=== PATIENT | female | born 1950 | race Caucasian/White ===

== ENCOUNTER 2016-11-04 12:19 | Inpatient (IN) | payer OTHER ==
[~2016-11-04] VITALS: Ht 170.2 cm; Wt 65.9 kg
[2016-11-04] MEDS ORDERED: LISINOPRIL2.5 MG (15:35)
[2016-11-04] MEDS ORDERED: LEVOTHYROXIN0.025 M2 PO (15:36)
[2016-11-04] MEDS ORDERED: TOPROL XL25 MG PO (15:37)
[2016-11-04] MEDS ORDERED: SIMVASTATIN5 M2 (15:37)
[2016-11-04 15:51] LABS: BASOPHIL % 0.8 % (0-2); PLATELET COUNT 189 x10^3mcL (130-400); RED CELL DISTRIBUTION WIDTH 13.1 % (11.5-14.5)
[2016-11-04 16:02] LABS: CALCIUM 9.6 mg/dL (8.5-10.1); CARBON DIOXIDE 19.6 mmol/L (21-32); CREATININE SERUM 1.6 mg/dL (0.6-1.0); POTASSIUM SERUM 5.4 mmol/L (3.5-5.1)
[2016-11-04 16:07] LABS: PHOSPHOROUS 3.9 mg/dL (2.5-4.9)
[2016-11-04 16:18] LABS: T3 TOTAL 0.71 ng/mL
[2016-11-04 16:30] LABS: FREE T4 1.49 ng/dL (0.76-1.46); FREE THYROXINE INDEX 3.4 ug/dL (1.4-4.5); T4(THYROXINE) 8.8 ug/dL (4.7-13.3)
[2016-11-04 17:05] VITALS: BP 174/69
[2016-11-04 19:02] LABS: microscopic required? YES; urine erythrocyte NEGATIVE (NEGATIVE)
[2016-11-04 19:15] LABS: AMPHETAMINE QUAL UR POSITIVE (NEG <=1000)
[2016-11-04 19:40] VITALS: BP 113/72
[2016-11-05 05:28] VITALS: BP 100/73
[2016-11-05 06:56] LABS: CALCIUM 8.8 mg/dL (8.5-10.1); CREATININE SERUM 1.5 mg/dL (0.6-1.0); POTASSIUM SERUM 5.2 mmol/L (3.5-5.1)
[2016-11-05 07:06] LABS: CHOLESTEROL/HDL RATIO 2.2
[2016-11-05 07:16] LABS: PLATELET COUNT 153 x10^3mcL (130-400); RED CELL DISTRIBUTION WIDTH 13.1 % (11.5-14.5)
[2016-11-05 09:17] VITALS: BP 119/71
[2016-11-05] MEDS ORDERED: HCTZ/LISINOPRIL1 TA2 PO (12:28)
[2016-11-05] MEDS ORDERED: LEVOTHYROXIN0.125 M2 PO (12:30)
[2016-11-05 13:33] VITALS: BP 140/78
[2016-11-05 17:41] VITALS: BP 107/60
[2016-11-05] MEDS ORDERED: PEPCID20 MG PO (18:30)
[2016-11-05] MEDS ORDERED: LOMOTIL1 TAB PO (18:31)
[2016-11-05] MEDS ORDERED: ADDERALL XR30 MG PO (18:32)
[2016-11-05] MEDS ORDERED: IBU-200200 MG PO (18:34)
[2016-11-05 22:15] VITALS: BP 133/68
[2016-11-05 22:16] VITALS: BP 113/60
[2016-11-06 06:15] VITALS: BP 123/69
[2016-11-06 06:35] LABS: CALCIUM 9.5 mg/dL (8.5-10.1); CHLORIDE SERUM 111 mmol/L (98-107); CREATININE SERUM 1.3 mg/dL (0.6-1.0); GFR1 44 mL/min; GLUCOSE SERUM 82 mg/dL (74-106); MAGNESIUM 1.5 mg/dL (1.8-2.4); POTASSIUM SERUM 4.1 mmol/L (3.5-5.1); SODIUM SERUM 144 mmol/L (136-145)
[2016-11-06 06:50] LABS: BASOPHIL % 0.5 % (0-2); PLATELET COUNT 161 x10^3mcL (130-400); RED CELL DISTRIBUTION WIDTH 12.9 % (11.5-14.5)
[2016-11-06 10:04] VITALS: BP 147/83
[2016-11-06 16:17] LABS: IRON 25 ug/dL (50-170); TOTAL IRON BINDING CAPACITY 202 ug/dL (250-450)
[2016-11-06 16:22] LABS: RED BLOOD CELLS 3.34 M/mm3 (4.10-5.10)
[2016-11-06 18:34] VITALS: BP 127/71
[2016-11-06 21:08] VITALS: BP 145/90
[2016-11-07 05:37] VITALS: BP 136/69
[2016-11-07 07:15] LABS: CARBON DIOXIDE 20.5 mmol/L (21-32); CHOLESTEROL/HDL RATIO 2.5; CREATININE SERUM 1.1 mg/dL (0.6-1.0); MAGNESIUM 1.7 mg/dL (1.8-2.4); POTASSIUM SERUM 3.9 mmol/L (3.5-5.1)
[2016-11-07 07:27] LABS: BASOPHIL % 0.3 % (0-2); PLATELET COUNT 145 x10^3mcL (130-400); RED CELL DISTRIBUTION WIDTH 12.7 % (11.5-14.5)
[2016-11-07 08:54] VITALS: BP 118/97
[2016-11-07 13:36] VITALS: BP 129/71
[2016-11-07 21:47] VITALS: BP 164/87
[2016-11-08 05:54] VITALS: BP 152/88
[2016-11-08 06:27] LABS: CARBON DIOXIDE 19.4 mmol/L (21-32); CHLORIDE SERUM 109 mmol/L (98-107); CREATININE SERUM 0.9 mg/dL (0.6-1.0); GFR1 > 60 mL/min; GLUCOSE SERUM 98 mg/dL (74-106); MAGNESIUM 1.3 mg/dL (1.8-2.4); POTASSIUM SERUM 3.4 mmol/L (3.5-5.1); SODIUM SERUM 142 mmol/L (136-145)
[2016-11-08 06:44] LABS: BASOPHIL % 0.4 % (0-2); PLATELET COUNT 145 x10^3mcL (130-400); RED CELL DISTRIBUTION WIDTH 12.6 % (11.5-14.5)
[2016-11-08 09:51] VITALS: BP 140/80
[2016-11-08 13:52] VITALS: BP 156/86
[2016-11-08 17:14] VITALS: BP 153/87
[2016-11-08 21:41] VITALS: BP 150/94
[2016-11-09 06:06] VITALS: BP 135/86
[2016-11-09 06:39] LABS: CALCIUM 8.9 mg/dL (8.5-10.1); CARBON DIOXIDE 19.3 mmol/L (21-32); CHLORIDE SERUM 102 mmol/L (98-107); CREATININE SERUM 0.9 mg/dL (0.6-1.0); GFR1 > 60 mL/min; GLUCOSE SERUM 87 mg/dL (74-106); MAGNESIUM 2.1 mg/dL (1.8-2.4); PHOSPHOROUS 2.5 mg/dL (2.5-4.9); POTASSIUM SERUM 3.6 mmol/L (3.5-5.1); SODIUM SERUM 139 mmol/L (136-145)
[2016-11-09 06:41] LABS: BASOPHIL % 0.5 % (0-2); PLATELET COUNT 134 x10^3mcL (130-400); RED CELL DISTRIBUTION WIDTH 12.9 % (11.5-14.5)
[2016-11-09 09:29] VITALS: BP 136/84
[2016-11-09 12:43] VITALS: BP 154/92
[2016-11-09 17:15] VITALS: BP 143/94
[2016-11-09 21:35] VITALS: BP 144/90
[2016-11-10 06:05] VITALS: BP 147/89
[2016-11-10 06:58] LABS: BILIRUBIN TOTAL 0.4 mg/dL (0.20-1.00); CALCIUM 9.2 mg/dL (8.5-10.1); CARBON DIOXIDE 21.9 mmol/L (21-32); CREATININE SERUM 1.2 mg/dL (0.6-1.0); POTASSIUM SERUM 3.6 mmol/L (3.5-5.1)
[2016-11-10 06:59] LABS: ALBUMIN 2.1 g/dL (3.4-5.0); TOTAL PROTEIN, SERUM 5.1 g/dL (6.4-8.2)
[2016-11-10 07:11] LABS: BASOPHIL % 0.8 % (0-2); PLATELET COUNT 141 x10^3mcL (130-400); RED CELL DISTRIBUTION WIDTH 12.8 % (11.5-14.5)
[2016-11-10] MEDS ORDERED: TOR10 PO (09:11)
[2016-11-10] MEDS ORDERED: LEVAQUIN500 M1 PO (09:14)
[2016-11-10] MEDS ORDERED: LAC PO (09:15)
[2016-11-10 09:45] VITALS: BP 152/89
[2016-11-10 10:32] VITALS: BP 147/89
== END 2016-11-10 13:15 | DRG 480 ==
LOC: ED 12:19 → DU 15:09
PROVIDERS: Emergency Medicine; Family Medicine; Neuromusculoskeletal Medicine, Sports Medicine; ADMIT Student in an Organized Health Care Education/Training Program
PROC: 0QS604Z Reposition Right Upper Femur with Internal Fixation Device, Open Approach (ICD-10-PCS; principal; 2016-11-06 13:30)
DX: S72.011A Unspecified intracapsular fracture of right femur, initial encounter for closed fracture (principal); N17.0 Acute kidney failure with tubular necrosis; E43 Unspecified severe protein-calorie malnutrition; G92 Toxic encephalopathy; N39.0 Urinary tract infection, site not specified; F10.239 Alcohol dependence with withdrawal, unspecified; T51.0X1A Toxic effect of ethanol, accidental (unintentional), initial encounter; S80.211A Abrasion, right knee, initial encounter; E87.5 Hyperkalemia; E83.42 Hypomagnesemia; I10 Essential (primary) hypertension; D64.9 Anemia, unspecified; E78.00 Pure hypercholesterolemia, unspecified; E03.9 Hypothyroidism, unspecified; F90.9 Attention-deficit hyperactivity disorder, unspecified type; F12.10 Cannabis abuse, uncomplicated; Y92.009 Unspecified place in unspecified non-institutional (private) residence as the place of occurrence of the external cause; W01.0XXA Fall on same level from slipping, tripping and stumbling without subsequent striking against object, initial encounter; Y92.017 Garden or yard in single-family (private) house as the place of occurrence of the external cause; Y99.0 Civilian activity done for income or pay
CPT/HCPCS: 76001; 84439; 90715; 94150; 97110-GP; 97116-GP; 97530-GP; C1713; G0480; J0330; J0690; J0696; J1170; J1644; J1885; J1956; J2060; J2405; J2704; J2916; J3010; J3475; J3490; J7030; J7120; Q0092